=== PATIENT | female | born 1955 | race African-American/Black ===

== ENCOUNTER 2016-12-11 12:19 | Emergency (ER) | payer OTHER, MEDICAID ==
[~2016-12-11] VITALS: Ht 154.9 cm; Wt 67.3 kg
[2016-12-11] MEDS ORDERED: ASPIRIN 81MG TABLET PO ONE (14:15)
[2016-12-11 14:46] LABS: BASOPHILS % 0.6 % (0.0-2.0); HEMATOCRIT. 35.2 % (36.0-48.0); HEMOGLOBIN. 11.7 g/dL (12.0-16.0); LYMPHOCYTES % 41.1 % (20.0-50.0); MEAN CORPUSCULAR HEMOGLOBIN 29.6 pg (28.0-32.0); MEAN CORPUSCULAR VOLUME 88.9 fL (81.0-99.0); MEAN PLATELET VOLUME 8.2 fl (7.4-10.4); MONOCYTES % 9.1 % (2.0-8.0); NEUTROPHILS % 47.2 % (40.0-76.0); PLATELET 229 x1000/uL (130-400); RED BLOOD CELL COUNT 3.96 mill/uL (4.2-5.4); RED CELL DISTRIBUTION WIDTH 15.7 % (11.6-14.6)
[2016-12-11 14:49] LABS: PROTHROMBIN TIME 10.9 sec
[2016-12-11 14:58] LABS: CARBON DIOXIDE 29 mEq/L (21-32); CHLORIDE 108 mEq/L (98-107); TROPONIN I < 0.02 ng/mL (0.00-0.04)
[2016-12-11 15:03] VITALS: BP 165/91
== END 2016-12-11 16:02 | disposition home or self-care (01) ==
LOC: ER 12:19
DX: R07.9 Chest pain, unspecified (principal); L02.214 Cutaneous abscess of groin; F78 Other intellectual disabilities; F41.9 Anxiety disorder, unspecified; I10 Essential (primary) hypertension
CPT/HCPCS: 36415; 71010; 80053; 83880; 84484; 85025; 85610; 93005; 99285